=== PATIENT | female | born 1995 | race American Indian/Alaskan Native ===

== ENCOUNTER 2020-06-29 13:37 | Emergency (ER) | payer SELFPAY ==
--- NOTE | 2020-06-29 15:35 | EDM.PDOC ---
ED HPI GENERAL MEDICAL PROBLEM - General Chief Complaint: Respiratory Problem Stated Complaint: COVID+/VOMITING/NEEDS FLUIDS Time Seen by Provider: 06/29/20 15:34 - History of Present Illness INITIAL COMMENTS - FREE TEXT/NARRATIVE: 25-year-old female presents the emergency room with possibly dehydration and shakiness. The patient has a history of seizures is been several months and she had a seizure. Apparently she takes a medication like clonazepam she did not bring the medication with her and she is not certain what it is. And she did not bring it in with her. She does not always take it as directed as well. So or n ot positive what she takes. The patient had an episode around 1 AM where she had a seizure. These almost sound like pseudoseizures I do not have old records on her but she is awake during them and tries to talk herself out of them. The patient has been a little shaky and tremulous after this episode and that is what brings her in today. The patient is normally from [facility] and is here with family. She was diagnosed positive at [facility] about a week ago for COVID her sister was just discharged from the hospital here with COVID. She is not vomiting at least she is telling me she is not vomiting however when she came to admissions they reported that she reported that she was. 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: Musculoskeletal History: Reports: Fracture Neurological History: Reports: Seizure Psychiatric History: Reports: Addiction Dermatologic History: Reports: Psoriasis - Infectious Disease History Infectious Disease History: Reports: Novel Coronavirus - Past Surgical History HEENT Surgical History: Reports: Oral Surgery Social & Family History - Family History Family Medical History: Noncontributory - Tobacco Use Smoking Status *Q: Current Every Day Smoker Years of Tobacco use: 10 Packs/Tins Daily: 0.2 - Caffeine Use Caffeine Use: Reports: Coffee, Energy Drinks, Soda, Tea - Recreational Drug Use Recreational Drug Use: Yes Drug Use in Last 12 Months: No Recreational Drug Type: Reports: Ecstasy, Heroin, Marijuana/Hashish ED ROS GENERAL - Review of Systems Review Of Systems: See Below Constitutional: Reports: No Symptoms HEENT: Reports: No Symptoms Respiratory: Reports: No Symptoms, Other (Her cough has basically resolved from the COVID) Cardiovascular: Reports: No Symptoms GI/Abdominal: Reports: Vomiting (She reported to admitting that she was vomiting but she denies vomiting to me) Musculoskeletal: Reports: No Symptoms Skin: Reports: No Symptoms Neurological: Reports: Syncope Psychiatric: Reports: Anxiety ED EXAM, GENERAL - Physical Exam Exam: See Below Exam Limited By: No Limitations General Appearance: Alert, Anxious, Mild Distress (She is a little shaky and appears quite anxious) Ears: Normal External Exam, Normal Canal, Hearing Grossly Normal, Normal TMs Nose: Normal Inspection, Normal Mucosa, No Blood Throat/Mouth: Normal Inspection, Normal Lips, Normal Teeth, Normal Gums, Normal Oropharynx, Normal Voice, No Airway Compromise Head: Atraumatic, Normocephalic Neck: Normal Inspection, Supple, Non-Tender, Full Range of Motion Respiratory/Chest: No Respiratory Distress, Lungs Clear, Normal Breath Sounds, No Accessory Muscle Use, Chest Non-Tender Cardiovascular: Normal Peripheral Pulses, Regular Rate, Rhythm, No Edema, No Gallop, No JVD, No Murmur, No Rub GI/Abdominal: Normal Bowel Sounds, Soft, Non-Tender, No Organomegaly, No Distention, No Abnormal Bruit, No Mass Neurological: Alert, Oriented, CN II-XII Intact, Normal Cognition, No Motor/Sensory Deficits Psychiatric: Anxious Skin Exam: Warm, Dry, Intact Course - Vital Signs Last Recorded V/S: Last Vital Signs Temp 36.1 C 06/29/20 14:09 Pulse 76 06/29/20 14:09 Resp 20 06/29/20 14:09 BP 113/64 06/29/20 14:09 Pulse Ox 97 06/29/20 14:09 - Orders/Labs/Meds Orders: Active Orders 24 hr Category Date Time Status CULTURE URINE [RM] Stat Lab 06/29/20 18:14 Received Labs: Laboratory Tests 06/29/20 06/29/20 06/29/20 Range/Units 14:05 14:05 14:05 WBC 5.85 (3.98-10.04) K/mm3 RBC 4.78 (3.98-5.22) M/mm3 Hgb 13.1 (11.2-15.7) gm/dl Hct 40.9 (34.1-44.9) % MCV 85.6 (79.4-94.8) fl MCH 27.4 (25.6-32.2) pg MCHC 32.0 L (32.2-35.5) g/dl RDW Std Deviation 44.2 (36.4-46.3) fL Plt Count 605 H (182-369) K/mm3 MPV 9.6 (9.4-12.3) fl Neutrophils % (Manual) 54 (40-60) % Band Neutrophils % 0 (0-10) % Lymphocytes % (Manual) 42 H (20-40) % Atypical Lymphs % 0 % Monocytes % (Manual) 3 (2-10) % Eosinophils % (Manual) 1 (0.7-5.8) % Basophils % (Manual) 0 L (0.1-1.2) Platelet Estimate Increased Plt Morphology Comment Normal RBC Morph Comment Normal Sodium 140 (136-145) mEq/L Potassium 3.3 L (3.5-5.1) mEq/L Chloride 105 (98-107) mEq/L Carbon Dioxide 25 (21-32) mEq/L Anion Gap 13.3 (5-15) BUN 10 (7-18) mg/dL Creatinine 0.9 (0.55-1.02) mg/dL Est Cr Clr Drug Dosing 92.11 mL/min Estimated GFR (MDRD) > 60 (>60) mL/min BUN/Creatinine Ratio 11.1 L (14-18) Glucose 92 (74-106) mg/dL Calcium 8.6 (8.5-10.1) mg/dL Total Bilirubin 0.5 (0.2-1.0) mg/dL AST 77 H (15-37) U/L ALT 81 H (14-59) U/L Alkaline Phosphatase 103 (46-116) U/L C-Reactive Protein 1.8 H* (<1.0) mg/dL Total Protein 8.2 (6.4-8.2) g/dl Albumin 3.4 (3.4-5.0) g/dl Globulin 4.8 gm/dL Albumin/Globulin Ratio 0.7 L (1-2) HCG, Qual Negative (NEGATIVE) Urine Color (Yellow) Urine Appearance (Clear) Urine pH (5.0-8.0) Ur Specific [place] (1.005-1.030) Urine Protein (Negative) Urine Glucose (UA) (Negative) Urine Ketones (Negative) Urine Occult Blood (Negative) Urine Nitrite (Negative) Urine Bilirubin (Negative) Urine Urobilinogen (0.2-1.0) Ur Leukocyte Esterase (Negative) Urine RBC (0-5) /hpf Urine WBC (0-5) /hpf Ur Squamous Epith Cells (0-5) /hpf Urine Bacteria (FEW) /hpf Urine Mucus (FEW) /hpf Urine Opiates Screen (RDKAON=036) Ur Buprenorphine Scrn (CUTOFF=10) Ur Oxycodone Screen (ROV5AC=628) Urine Methadone Screen (DTXGUB=989) Ur Propoxyphene Screen (TADOXE=550) Ur Barbiturates Screen (TNKTRA=782) Ur Tricyclics Screen (OZAHHL=931) Ur Phencyclidine Scrn (CUTOFF=25) Ur Amphetamine Screen (TIARVL=311) U Methamphetamines Scrn (FKPRUC=956) U Benzodiazepines Scrn (MYWATW=534) U Cocaine Metab Screen (SLPGAJ=274) U Marijuana (THC) Screen (CUTOFF=50) 06/29/20 06/29/20 Range/Units 18:14 18:14 WBC (3.98-10.04) K/mm3 RBC (3.98-5.22) M/mm3 Hgb (11.2-15.7) gm/dl Hct (34.1-44.9) % MCV (79.4-94.8) fl MCH (25.6-32.2) pg MCHC (32.2-35.5) g/dl RDW Std Deviation (36.4-46.3) fL Plt Count (182-369) K/mm3 MPV (9.4-12.3) fl Neutrophils % (Manual) (40-60) % Band Neutrophils % (0-10) % Lymphocytes % (Manual) (20-40) % Atypical Lymphs % % Monocytes % (Manual) (2-10) % Eosinophils % (Manual) (0.7-5.8) % Basophils % (Manual) (0.1-1.2) Platelet Estimate Plt Morphology Comment RBC Morph Comment Sodium (136-145) mEq/L Potassium (3.5-5.1) mEq/L Chloride (98-107) mEq/L Carbon Dioxide (21-32) mEq/L Anion Gap (5-15) BUN (7-18) mg/dL Creatinine (0.55-1.02) mg/dL Est Cr Clr Drug Dosing mL/min Estimated GFR (MDRD) (>60) mL/min BUN/Creatinine Ratio (14-18) Glucose (74-106) mg/dL Calcium (8.5-10.1) mg/dL Total Bilirubin (0.2-1.0) mg/dL AST (15-37) U/L ALT (14-59) U/L Alkaline Phosphatase (46-116) U/L C-Reactive Protein (<1.0) mg/dL Total Protein (6.4-8.2) g/dl Albumin (3.4-5.0) g/dl Globulin gm/dL Albumin/Globulin Ratio (1-2) HCG, Qual (NEGATIVE) Urine Color Dark yellow (Yellow) Urine Appearance Slt cloudy H (Clear) Urine pH 6.5 (5.0-8.0) Ur Specific [place] 1.020 (1.005-1.030) Urine Protein 1+ H (Negative) Urine Glucose (UA) Negative (Negative) Urine Ketones 1+ H (Negative) Urine Occult Blood Negative (Negative) Urine Nitrite Negative (Negative) Urine Bilirubin 1+ H (Negative) Urine Urobilinogen 2.0 H (0.2-1.0) Ur Leukocyte Esterase 2+ H (Negative) Urine RBC 0-5 (0-5) /hpf Urine WBC 10-20 H (0-5) /hpf Ur Squamous Epith Cells 40-50 H (0-5) /hpf Urine Bacteria Moderate H (FEW) /hpf Urine Mucus Moderate H (FEW) /hpf Urine Opiates Screen Negative (EPQUMA=583) Ur Buprenorphine Scrn Negative (CUTOFF=10) Ur Oxycodone Screen Negative (ZRQ1DU=720) Urine Methadone Screen Negative (ESGNYY=399) Ur Propoxyphene Screen Negative (TZMESW=365) Ur Barbiturates Screen Negative (YEIHBR=189) Ur Tricyclics Screen Negative (MXTGHS=971) Ur Phencyclidine Scrn Negative (CUTOFF=25) Ur Amphetamine Screen Negative (SMOSPN=395) U Methamphetamines Scrn Negative (TRVSOX=159) U Benzodiazepines Scrn Negative (OGSGSS=608) U Cocaine Metab Screen Negative (FCAERS=968) U Marijuana (THC) Screen Presumptive positive H (CUTOFF=50) Meds: Medications Discontinued Medications Generic Name Dose Route Start Last Admin Trade Name Ousmane PRN Reason Stop Dose Admin Lorazepam 1 mg 06/29/20 15:58 06/29/20 16:08 Ativan IVPUSH 06/29/20 15:59 1 mg ONETIME ONE Administration Potassium Chloride 40 meq 06/29/20 17:52 Klor-Con M20 PO 06/29/20 17:53 ONETIME ONE - Re-Assessments/Exams Free Text/Narrative Re-Assessment/Exam: 06/29/20 17:58 We will reactive protein is mildly elevated platelets are also elevated perhaps due to the COVID. We still have not obtained a urine so awaiting UA and UDS. Patient is feeling better after getting a milligram of Ativan. 06/29/20 18:47 Urinalysis is back along with the drug screen is only positive for cannabinoids. Urinalysis is grossly contaminated I recommended the patient that we can attempt a get another specimen but she really wants to get going. She does not have any urinary tract symptoms at this point. However I told her I can only do the best I can with this obviously contaminated urine specimen. At this point I will not treat for UTI as she is not having symptoms. 06/29/20 18:48 Departure - Departure Time of Disposition: 18:48 Disposition: Home, Self-Care 01 Clinical Impression: Anxiety reaction - Discharge Information Referrals: PCP,None [Primary Care Provider] - Forms: ED Department Discharge Additional Instructions: Return to the emergency room with any questions problems or worsening symptoms. Follow-up in the hospital clinic this next week for recheck and follow-up. [phone] Sepsis Event Note (ED) - Evaluation Sepsis Screening Result: No Definite Risk - Focused Exam Vital Signs: Vital Signs Temp Pulse Resp BP Pulse Ox 06/29/20 14:09 36.1 C 76 20 113/64 97 - My Orders Last 24 Hours: My Active Orders 06/29/20 18:14 CULTURE URINE [RM] Stat - Assessment/Plan Last 24 Hours: My Active Orders 06/29/20 18:14 CULTURE URINE [RM] Stat
[2020-06-29] MEDS ORDERED: LORazepam 2 MG/ML SDV IVPUSH ONE (15:58)
[2020-06-29] MEDS ORDERED: Potassium Chloride 20 MEQ Tab.ER PO ONE (17:52)
== END 2020-06-29 19:10 | disposition home or self-care (01) ==
LOC: JD.ED 13:37
DX: F41.1 Generalized anxiety disorder (principal); U07.1 COVID-19; R11.10 Vomiting, unspecified; F17.210 Nicotine dependence, cigarettes, uncomplicated
CPT/HCPCS: 36415; 80053; 80306; 81001; 84703; 85007; 85027; 86140; 87086; 96374; 99284; A9270; J2060; 99283

== ENCOUNTER 2021-05-23 15:08 | Emergency (ER) | payer MEDICAID ==
[2021-05-23] MEDS ORDERED: Sodium Chloride 0.9% 10 ML Syringe FLUSH PRN (15:29)
[2021-05-23] MEDS ORDERED: levETIRAcetam 1,000 MG in Sodium Chloride 0.9% 100 ML IV ONE (15:30)
[2021-05-23] MEDS ORDERED: Ketorolac 30 MG/ML SDV IVPUSH ONE (15:58)
--- NOTE | 2021-05-23 16:35 | EDM.PDOC ---
ED HPI GENERAL MEDICAL PROBLEM - General Chief Complaint: Neurological Problem Stated Complaint: SEIZURE ACTIVITY Time Seen by Provider: 05/23/21 15:14 Source of Information: Reports: Patient History Limitations: Reports: No Limitations - History of Present Illness INITIAL COMMENTS - FREE TEXT/NARRATIVE: The patient presents wit a seizure. She has a history of seizures and she was on medications. She stopped taking them a year ago and she did good until last night. She had 2 seizures back to back. She then had another one at 11am today and about 2 hours after that. She did bite her tongue. She has no headache, fever, chills, cough, chest pain, shortness of breath, abdominal pain, nausea or vomiting. She does have some right leg pain. She is thinking she needs to get back on something for her seizures. She has not been drinking lately. She has been getting enough sleep. She does not do drugs. 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 Respiratory History: Reports: PE Other Respiratory History: Pulmonary blood clot 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: Musculoskeletal History: Reports: Fracture Neurological History: Reports: Seizure Psychiatric History: Reports: Addiction Endocrine/Metabolic History: Reports: Obesity/BMI 30+ Dermatologic History: Reports: Psoriasis - Infectious Disease History Infectious Disease History: Reports: Novel Coronavirus - Past Surgical History HEENT Surgical History: Reports: Oral Surgery Musculoskeletal Surgical History: Reports: Other (See Below) Other Musculoskeletal Surgeries/Procedures:: Clavicle Surgery with Bone Graft Social & Family History - Family History Family Medical History: No Pertinent Family History - Tobacco Use Tobacco Use Status *Q: Current Every Day Tobacco User Years of Tobacco use: 10 Packs/Tins Daily: 0.3 - Caffeine Use Caffeine Use: Reports: Energy Drinks, Soda - Recreational Drug Use Recreational Drug Use: No ED ROS GENERAL - Review of Systems Review Of Systems: See Below Constitutional: Reports: No Symptoms HEENT: Reports: No Symptoms Respiratory: Reports: No Symptoms Cardiovascular: Reports: No Symptoms Endocrine: Reports: No Symptoms GI/Abdominal: Reports: No Symptoms : Reports: No Symptoms Musculoskeletal: Reports: Muscle Stiffness, Other (ritht leg pain) Skin: Reports: No Symptoms Neurological: Reports: Seizure - Physical Exam Exam: See Below Exam Limited By: No Limitations General Appearance: Alert, No Apparent Distress Ears: Normal External Exam Nose: Normal Inspection Throat/Mouth: Other (abrasion left tongue) Head Exam: Atraumatic, Normocephalic Neck: Normal Inspection Respiratory/Chest: No Respiratory Distress, Lungs Clear, Normal Breath Sounds Cardiovascular: Regular Rate, Rhythm, No Edema, No Murmur GI/Abdominal: Soft, Non-Tender, No Organomegaly, No Mass Neuro Exam (Abbreviated): Alert, Oriented, No Motor/Sensory Deficits Course - Vital Signs Last Recorded V/S: Last Vital Signs Temp 96.4 F L 05/23/21 15:14 Pulse 92 05/23/21 15:14 Resp 16 05/23/21 15:14 BP 133/76 05/23/21 15:14 Pulse Ox 97 05/23/21 15:14 - Orders/Labs/Meds Orders: Active Orders 24 hr Category Date Time Status Cardiac Monitoring [RC] . DIRECTED Care 05/23/21 15:29 Active Peripheral IV Care [RC] . DIRECTED Care 05/23/21 15:30 Active Sodium Chloride 0.9% [Saline Flush] Med 05/23/21 15:29 Active 10 ml FLUSH ASDIRECTED PRN Peripheral IV Insertion Adult [OM.PC] Stat Oth 05/23/21 15:29 Ordered Medication Orders Sodium Chloride (Sodium Chloride 0.9% 10 Ml Syringe) 10 ml FLUSH ASDIRECTED PRN PRN Reason: Keep Vein Open Last Admin: 05/23/21 15:34 Dose: 10 ml Documented by: FRANKIE Labs: Laboratory Tests 05/23/21 05/23/21 05/23/21 Range/Units 15:15 15:15 15:15 WBC 8.75 (3.98-10.04) K/mm3 RBC 4.19 (3.98-5.22) M/mm3 Hgb 11.8 (11.2-15.7) gm/dl Hct 36.9 (34.1-44.9) % MCV 88.1 (79.4-94.8) fl MCH 28.2 (25.6-32.2) pg MCHC 32.0 L (32.2-35.5) g/dl RDW Std Deviation 47.8 H (36.4-46.3) fL Plt Count 387 H D (182-369) K/mm3 MPV 9.2 L (9.4-12.3) fl Neut % (Auto) 66.5 (34.0-71.1) % Lymph % (Auto) 22.4 (19.3-51.7) % [place] % (Auto) 7.8 (4.7-12.5) % Eos % (Auto) 2.9 (0.7-5.8) Baso % (Auto) 0.3 (0.1-1.2) % Neut # (Auto) 5.82 (1.56-6.13) K/mm3 Lymph # (Auto) 1.96 (1.18-3.74) K/mm3 [place] # (Auto) 0.68 H (0.24-0.36) K/mm3 Eos # (Auto) 0.25 (0.04-0.36) K/mm3 Baso # (Auto) 0.03 (0.01-0.08) K/mm3 Sodium 145 (136-145) mEq/L Potassium 3.5 (3.5-5.1) mEq/L Chloride 109 H (98-107) mEq/L Carbon Dioxide 22 (21-32) mEq/L Anion Gap 17.5 H (5-15) BUN 7 (7-18) mg/dL Creatinine 0.7 (0.55-1.02) mg/dL Est Cr Clr Drug Dosing 118.43 mL/min Estimated GFR (MDRD) > 60 (>60) mL/min BUN/Creatinine Ratio 10.0 L (14-18) Glucose 90 (70-99) mg/dL Calcium 8.4 L (8.5-10.1) mg/dL Magnesium 1.8 (1.8-2.4) mg/dL Total Bilirubin 0.2 (0.2-1.0) mg/dL AST 29 (15-37) U/L ALT 24 (14-59) U/L Alkaline Phosphatase 76 (46-116) U/L Total Protein 7.6 (6.4-8.2) g/dl Albumin 3.7 (3.4-5.0) g/dl Globulin 3.9 gm/dL Albumin/Globulin Ratio 1.0 (1-2) HCG, Qual Negative (NEGATIVE) Meds: Medications Generic Name Dose Route Start Last Admin Trade Name Freq PRN Reason Stop Dose Admin Sodium Chloride 10 ml 05/23/21 15:29 05/23/21 15:34 Sodium Chloride 0.9% 10 Ml Syringe FLUSH 10 ml ASDIRECTED PRN Administration Keep Vein Open Discontinued Medications Generic Name Dose Route Start Last Admin Trade Name Freq PRN Reason Stop Dose Admin Levetiracetam 1,000 mg/ Sodium 110 mls @ 400 mls/hr 05/23/21 15:30 05/23/21 15:51 Chloride IV 05/23/21 15:44 400 mls/hr ONETIME ONE Administration Ketorolac Tromethamine 30 mg 05/23/21 15:58 05/23/21 16:07 Ketorolac 30 Mg/Ml Sdv IVPUSH 05/23/21 15:59 30 mg ONETIME ONE Administration - Re-Assessments/Exams Free Text/Narrative Re-Assessment/Exam: 05/23/21 16:34 I ordered an IV saline lock, labs and keppra 1,000mg IV. 05/23/21 16:35 Her CBC and CMP look good. Her HCG is negative. I will get her on keppra and have her follow up with her doctor. Departure - Departure Time of Disposition: 16:45 Disposition: Home, Self-Care 01 Condition: Good Clinical Impression: Seizure - Discharge Information *PRESCRIPTION DRUG MONITORING PROGRAM REVIEWED*: Not Applicable *COPY OF PRESCRIPTION DRUG MONITORING REPORT IN PATIENT DOMONIQUE: Not Applicable Prescriptions: levETIRAcetam [Keppra] 500 mg PO BID #60 tab Referrals: PCP,None [Primary Care Provider] - Reyna Gonzalez MD [Physician] - 1 Week Forms: ED Department Discharge Additional Instructions: Drink plenty of fluids. Take the keppra 2 times per day. Avoid alcohol and get plenty of sleep. Do not drive for 6 months or until you are cleared by your doctor. Avoid swimming or baths with lots of water in case you have a seizure. You may drown. Follow up with your provider or Dr Gonzalez in our clinic. Please return if you are worse. Sepsis Event Note (ED) - Evaluation Sepsis Screening Result: No Definite Risk - Focused Exam Vital Signs: Vital Signs Temp Pulse Resp BP Pulse Ox 05/23/21 15:14 96.4 F L 92 16 133/76 97 - My Orders Last 24 Hours: My Active Orders 05/23/21 15:29 Cardiac Monitoring [RC] . DIRECTED Sodium Chloride 0.9% [Saline Flush] 10 ml FLUSH ASDIRECTED PRN Peripheral IV Insertion Adult [OM.PC] Stat 05/23/21 15:30 Peripheral IV Care [RC] . DIRECTED - Assessment/Plan Last 24 Hours: My Active Orders 05/23/21 15:29 Cardiac Monitoring [RC] . DIRECTED Sodium Chloride 0.9% [Saline Flush] 10 ml FLUSH ASDIRECTED PRN Peripheral IV Insertion Adult [OM.PC] Stat 05/23/21 15:30 Peripheral IV Care [RC] . DIRECTED
== END 2021-05-23 16:53 | disposition home or self-care (01) ==
LOC: JD.ED 15:08
DX: R56.9 Unspecified convulsions (principal); S00.512A Abrasion of oral cavity, initial encounter; M79.604 Pain in right leg; E66.9 Obesity, unspecified; Z68.36 Body mass index [BMI] 36.0-36.9, adult; Z72.0 Tobacco use; Z91.030 Bee allergy status; Z79.899 Other long term (current) drug therapy; X58.XXXA Exposure to other specified factors, initial encounter
CPT/HCPCS: 36415; 80053; 83735; 84703; 85025; 96365; 96375; 99284; J1885; J1953

== ENCOUNTER 2021-05-27 12:02 | Emergency (ER) | payer MEDICAID ==
--- NOTE | 2021-05-27 12:39 | EDM.PDOC ---
ED HPI GENERAL MEDICAL PROBLEM - General Chief Complaint: Neurological Problem Stated Complaint: SEIZURE ACTIVITY Time Seen by Provider: 05/27/21 12:38 - History of Present Illness INITIAL COMMENTS - FREE TEXT/NARRATIVE: 25-year-old female returns the emergency room what she believes was 2 seizures earlier today. Patient had an episode where she had blank staring but she was awake during all this. Then she had her typical generalized seizure after this she bit her tongue with it. She is back to normal now. The patient was seen here on the started on Keppra however was unable unable to get this filled due to financial restraints. This evening the patient's father can help her get it filled. Patient has no other complaints at this time. 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: Musculoskeletal History: Reports: Fracture Neurological History: Reports: Seizure Psychiatric History: Reports: Addiction Endocrine/Metabolic History: Reports: Obesity/BMI 30+ Dermatologic History: Reports: Psoriasis - Infectious Disease History Infectious Disease History: Reports: Novel Coronavirus - Past Surgical History HEENT Surgical History: Reports: Oral Surgery Musculoskeletal Surgical History: Reports: Other (See Below) Other Musculoskeletal Surgeries/Procedures:: Clavicle Surgery with Bone Graft Social & Family History - Family History Family Medical History: No Pertinent Family History - Caffeine Use Caffeine Use: Reports: Energy Drinks, Soda ED ROS GENERAL - Review of Systems Review Of Systems: See Below Constitutional: Reports: No Symptoms HEENT: Reports: No Symptoms Respiratory: Reports: No Symptoms Cardiovascular: Reports: No Symptoms GI/Abdominal: Reports: No Symptoms ED EXAM, GENERAL - Physical Exam Exam: See Below Exam Limited By: No Limitations General Appearance: Alert, No Apparent Distress Head: Atraumatic, Normocephalic Neck: Normal Inspection, Supple, Non-Tender, Full Range of Motion Respiratory/Chest: No Respiratory Distress, Lungs Clear, Normal Breath Sounds Cardiovascular: Regular Rate, Rhythm, No Edema, No Murmur GI/Abdominal: Normal Bowel Sounds, Soft, Non-Tender Back Exam: Normal Inspection. No: CVA Tenderness (L), CVA Tenderness (R) Course - Vital Signs Last Recorded V/S: Last Vital Signs Temp 36.1 C 05/27/21 12:29 Pulse 83 05/27/21 12:29 Resp 18 05/27/21 12:29 BP 124/77 05/27/21 12:29 Pulse Ox 95 05/27/21 12:29 - Orders/Labs/Meds Meds: Medications Discontinued Medications Generic Name Dose Route Start Last Admin Trade Name Ousmane PRN Reason Stop Dose Admin Acetaminophen 975 mg 05/27/21 13:19 05/27/21 13:31 Acetaminophen 325 Mg Tab PO 05/27/21 13:20 975 mg NOW ONE Administration Levetiracetam 1,000 mg/ Sodium 110 mls @ 400 mls/hr 05/27/21 12:51 05/27/21 13:31 Chloride IV 05/27/21 13:05 400 mls/hr ONETIME ONE Administration - Re-Assessments/Exams Free Text/Narrative Re-Assessment/Exam: 05/27/21 12:54 I will give her Keppra 1000 mg IV at this point the patient assures me she can get the Keppra prescription filled this evening. 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 She knows that is waiting for her at the [facility] in the [facility]. Departure - Departure Time of Disposition: 15:05 Disposition: Home, Self-Care 01 Clinical Impression: Seizure - Discharge Information Referrals: PCP,None [Primary Care Provider] - Forms: ED Department Discharge Additional Instructions: Return to the emergency room with any questions problems or worsening symptoms. You have a prescription waiting for you at the [facility] pharmacy in the [employer] grocery store. Start this tonight. Then take 1 twice daily. Follow-up with your regular healthcare provider or follow-up in the hospital clinic in 1 week for recheck the phone number to the hospital clinic here in [place] is is [phone] or operate hazardous equipment includes until cleared to do so by a physician. Sepsis Event Note (ED) - Evaluation Sepsis Screening Result: No Definite Risk - Focused Exam Vital Signs: Vital Signs Temp Pulse Resp BP Pulse Ox 05/27/21 12:29 36.1 C 83 18 124/77 95
[2021-05-27] MEDS ORDERED: levETIRAcetam 1,000 MG in Sodium Chloride 0.9% 100 ML IV ONE (12:51)
[2021-05-27] MEDS ORDERED: Acetaminophen 325 MG Tab PO ONE (13:19)
== END 2021-05-27 15:25 | disposition home or self-care (01) ==
LOC: JD.ED 12:02
DX: R56.9 Unspecified convulsions (principal); E66.9 Obesity, unspecified; Z91.030 Bee allergy status; Z79.899 Other long term (current) drug therapy
CPT/HCPCS: 96365; 99283; A9270; J1953

== ENCOUNTER 2021-05-27 19:42 | Emergency (ER) | payer MEDICAID ==
--- NOTE | 2021-05-27 20:47 | EDM.PDOC ---
ED HPI GENERAL MEDICAL PROBLEM - General Chief Complaint: Neurological Problem Stated Complaint: [facility] Time Seen by Provider: 05/27/21 19:42 Source of Information: Reports: Patient History Limitations: Reports: No Limitations - History of Present Illness INITIAL COMMENTS - FREE TEXT/NARRATIVE: Medical records indicate that the patient was seen in this ED on 05/23/2021 after suffering 3 seizures. She reported that she had a history of seizure disorder, and that she had previously been on antiepileptic medication, but that she had stopped taking them a year prior. She was found to be hemodynamically stable, afebrile, saturating 97% on room air. Her physical exam was unremarkable. Work-up included a CBC, CMP, magnesium level, and serum qualitative hCG. Her entire work-up was unremarkable. She was given 1 g of IV Keppra in the ED before being discharged home with a prescription for Keppra 500 mg po BID #60. She was seen again in this ED earlier today, 05/27/2021, after suffering 2 more seizures. She reported that the first one involved blank staring during which time she was awake, but the second one was a generalized tonic-clonic seizure, where she bit her tongue. She reported that she had not filled the earlier prescription for Keppra, citing cost. Again she was found to be hemodynamically stable, afebrile, saturating 95% on room air. Her physical exam was again unremarkable. No work-up was performed. She was treated with another gram of IV Keppra before being discharged home with no new prescriptions. She told the provider that her father would be able to help her get her previous prescription filled. The patient is now brought back to the ED by EMS after suffering a seizure at home. EMS reports that when they arrived, the patient was just coming out of a seizure Her, but then she suffered 2 more seizures in their presence. Each seizure appeared to last only 45 seconds, and with the patient stopped seizing, she was not postictal. The patient tells me that she thinks she bit her tongue, but denies incontinence of bowel or bladder. She tells me that she has had seizures since she was 16 years old, and that she was on antiepileptic medication until she was 18 years old. She acknowledges that the reason that she stopped taking her antiepileptic medication was because she wanted to drive. She has never been evaluated by a Neurologist or undergone an EEG, and she also tells me that she has never undergone an imaging study of her head. She states that her last seizure, prior to 05/23/2021, was in 2019. She eats that she drank 2 beers about 1 hour ago. She denies illicit drug use. She denies recent sleep deprivation. Here in the ED tonight, the patient was initially found to be mildly tachycardic at 104 bpm, otherwise, she is hemodynamically stable, afebrile, saturating 97% on room air. She was initially tearful, asking for her father, but calmed down after she talked to him on the phone. Other than the seizures, the patient denies having a recent fever, chills, sore throat, ear pain, nasal or sinus congestion, cough, dyspnea, chest pain, palpitations, nausea, vomiting, constipation, diarrhea, abdominal pain, urinary symptoms, recent weight gain or weight loss, recent bloody bowel movements or black bowel movements, recent joint aches, headaches, or rashes. The patient does not have a PCP. She has not received a COVID vaccination. Left Toe-Long Pain Score (Numeric/FACES): 8 - Related Data Allergies Allergy/AdvReac Type Severity Reaction Status Date / Time bee pollen Allergy Severe Anaphylactic Verified 05/27/21 20:29 Shock Home Meds: Home Meds levETIRAcetam [Keppra] 500 mg PO BID #60 tab 05/23/21 [Rx] Past Medical History Respiratory History: Reports: PE Musculoskeletal History: Reports: Fracture Neurological History: Reports: Seizure Psychiatric History: Reports: Addiction (methamphetamine) Endocrine/Metabolic History: Reports: Obesity/BMI 30+ Dermatologic History: Reports: Psoriasis - Infectious Disease History Infectious Disease History: Reports: Novel Coronavirus - Past Surgical History HEENT Surgical History: Reports: Oral Surgery (dental extractions) GI Surgical History: Reports: Cholecystectomy (2013) Musculoskeletal Surgical History: Reports: ORIF (left clavicle), Other (See Below) (Left clavicle repair with bone graft from left hip) Social & Family History - Tobacco Use Tobacco Use Status *Q: Light Tobacco User Years of Tobacco use: 12 Packs/Tins Daily: 0.1 Packs/Tins Daily Comment: Down from 11/06 ppd Tobacco Use Comment: Started smoking 2007 - Caffeine Use Caffeine Use: Reports: Energy Drinks, Soda - Alcohol Use Alcohol Use History: Yes Alcohol Use Frequency: Socially - Recreational Drug Use Recreational Drug Use: Yes Drug Use in Last 12 Months: Yes Recreational Drug Type: Reports: Marijuana/Hashish (smokes once or twice a week), Methamphetamine (snorts on occasion) - Living Situation & Occupation Living situation: Reports: Single, with Family (Father) Occupation: Unemployed ED ROS GENERAL - Review of Systems Review Of Systems: Comprehensive ROS is negative, except as noted in HPI. - Physical Exam Exam: See Below Exam Limited By: No Limitations General Appearance: Alert, WD/WN, No Apparent Distress Eye Exam: Bilateral Eye: EOMI, Normal Inspection Ears: Normal External Exam, Hearing Grossly Normal Nose: Normal Inspection Throat/Mouth: Normal Inspection, Normal Lips, Normal Teeth, Normal Gums, Normal Oropharynx (no visible injury to left tongue), Normal Voice, No Airway Compromise Head Exam: Atraumatic, Normocephalic Neck: Normal Inspection, Full Range of Motion Respiratory/Chest: No Respiratory Distress, Lungs Clear, Normal Breath Sounds, No Accessory Muscle Use Cardiovascular: Normal Peripheral Pulses, Regular Rate, Rhythm, No Edema, No Gallop, No JVD, No Murmur, No Rub GI/Abdominal: Normal Bowel Sounds, Soft, Non-Tender, No Organomegaly, No Distention, No Abnormal Bruit, No Mass Neuro Exam (Abbreviated): Alert, Oriented, CN II-XII Intact, Normal Cognition, No Motor/Sensory Deficits Back Exam: Normal Inspection, Full Range of Motion, NT Extremities: Normal Inspection, Normal Range of Motion, Normal Capillary Refill Psychiatric: Normal Affect Skin Exam: Warm, Dry, Intact, Normal Color, No Rash Course - Vital Signs Last Recorded V/S: Last Vital Signs Temp 36.6 C 05/27/21 20:25 Pulse 110 H 05/27/21 21:08 Resp 18 05/27/21 20:25 BP 124/75 05/27/21 21:08 Pulse Ox 97 05/27/21 21:08 - Orders/Labs/Meds Orders: Active Orders 24 hr Category Date Time Status Head wo Cont [CT] Stat Exams 05/27/21 20:47 Taken Labs: Laboratory Tests 05/27/21 05/27/21 05/27/21 Range/Units 19:53 19:53 21:26 WBC 9.95 (3.98-10.04) K/mm3 RBC 4.54 (3.98-5.22) M/mm3 Hgb 12.7 (11.2-15.7) gm/dl Hct 39.7 (34.1-44.9) % MCV 87.4 (79.4-94.8) fl MCH 28.0 (25.6-32.2) pg MCHC 32.0 L (32.2-35.5) g/dl RDW Std Deviation 48.7 H (36.4-46.3) fL Plt Count 422 H (182-369) K/mm3 MPV 9.5 (9.4-12.3) fl Neutrophils % (Manual) 65 H (40-60) % Band Neutrophils % 1 (0-10) % Lymphocytes % (Manual) 27 (20-40) % Atypical Lymphs % 0 % Monocytes % (Manual) 3 (2-10) % Eosinophils % (Manual) 2 (0.7-5.8) % Basophils % (Manual) 2 H (0.1-1.2) Platelet Estimate Increased Plt Morphology Comment See note RBC Morph Comment Normal Sodium 144 (136-145) mEq/L Potassium 3.3 L (3.5-5.1) mEq/L Chloride 106 (98-107) mEq/L Carbon Dioxide 17 L (21-32) mEq/L Anion Gap 24.3 H (5-15) BUN 9 (7-18) mg/dL Creatinine 0.8 (0.55-1.02) mg/dL Est Cr Clr Drug Dosing TNP Estimated GFR (MDRD) > 60 (>60) mL/min BUN/Creatinine Ratio 11.3 L (14-18) Glucose 81 (70-99) mg/dL Calcium 8.8 (8.5-10.1) mg/dL Phosphorus 3.1 (2.6-4.7) mg/dL Magnesium 1.9 (1.8-2.4) mg/dL Total Bilirubin 0.5 (0.2-1.0) mg/dL AST 29 (15-37) U/L ALT 28 (14-59) U/L Alkaline Phosphatase 82 (46-116) U/L Creatine Kinase 280 H (26-192) U/L Total Protein 8.3 H (6.4-8.2) g/dl Albumin 4.1 (3.4-5.0) g/dl Globulin 4.2 gm/dL Albumin/Globulin Ratio 1.0 (1-2) Urine Opiates Screen Negative (MGLOUB=729) Ur Buprenorphine Scrn Negative (CUTOFF=10) Ur Oxycodone Screen Negative (WKC8HB=392) Urine Methadone Screen Negative (DIUMWM=717) Ur Propoxyphene Screen Negative (JVAITC=477) Ur Barbiturates Screen Negative (FFBNLS=333) Ur Tricyclics Screen Negative (HRRUWT=134) Ur Phencyclidine Scrn Negative (CUTOFF=25) Ur Amphetamine Screen Negative (MTIZFM=261) U Methamphetamines Scrn Presumptive positive H (EJGJWQ=592) U Benzodiazepines Scrn Presumptive positive H (JXPOWK=171) U Cocaine Metab Screen Negative (EMLZCX=196) U Marijuana (THC) Screen Presumptive positive H (CUTOFF=50) Ethyl Alcohol 0.14 (0.00) gm% Meds: Medications Discontinued Medications Generic Name Dose Route Start Last Admin Trade Name Freq PRN Reason Stop Dose Admin Acetaminophen 650 mg 05/27/21 21:42 05/27/21 22:00 Acetaminophen 325 Mg Tab PO 05/27/21 21:43 650 mg NOW ONE Administration - Re-Assessments/Exams Free Text/Narrative Re-Assessment/Exam: 05/27/21 21:43 CT of the head without contrast is read by Jameson as "No acute intracranial abnormality." 05/27/21 22:38 The patient's CBC is remarkable for mild thrombocytosis of 422,000, with remainder of her CBC being unremarkable. Her CMP is remarkable for slight hypokalemia of 3.3, and an anion gap mildly elevated at 24.3, with a bicarbonate depressed at 17, and the remainder of her CMP being unremarkable. Her magnesium level is within normal limits at 1.9. Her phosphorus level is within normal limits at 3.1. Her CPK is modestly elevated at 280. Her EtOH level is significantly elevated at 0.14. Her urine drug screen is positive for methamphetamine, benzodiazepines, and marijuana. 05/27/21 22:45 Test results discussed with the patient and her father - she allowed him to be present. She acknowledged that she has been snorting methamphetamine on and off since 16 years old, and that she smokes marijuana once or twice a week. I strongly recommended that she follow-up at [facility] to address her methamphetamine abuse, and she stated that she would. With respect to her ability to afford taking Keppra, we will have social media assistant contact her tomorrow at [phone], to see if they can do anything to help her afford her medications. Departure - Departure Time of Disposition: 22:49 Disposition: Home, Self-Care 01 Condition: Good Clinical Impression: Epileptic seizure, Methamphetamine abuse, Marijuana use, Alcohol intoxication - Discharge Information *PRESCRIPTION DRUG MONITORING PROGRAM REVIEWED*: No *COPY OF PRESCRIPTION DRUG MONITORING REPORT IN PATIENT DOMONIQUE: No Referrals: PCP,None [Primary Care Provider] - Forms: ED Department Discharge Additional Instructions: You were seen in the emergency after suffering 3 seizures. Work-up in the ER included several blood tests, a urine drug screen, and a CT scan of your head. Your work-up was remarkable for an alcohol level significantly elevated at 0.14 (for reference, that is almost double the upper legal limit for driving), and for your urine drug screen being positive for both methamphetamine and marijuana. Both alcohol and methamphetamine can lower your seizure threshold. It is very important that you do not drink alcohol or use methamphetamine. We strongly recommend that you follow-up at [facility] to address your methamphetamine and alcohol use: [address] [place] [phone] Someone from social media assistant will contact you tomorrow to discuss options for you to be able to afford your antiepileptic medication. If any other problems, please do not hesitate to return to the ER. Sepsis Event Note (ED) - Evaluation Sepsis Screening Result: No Definite Risk - Focused Exam Vital Signs: Vital Signs Temp Pulse Resp BP Pulse Ox 05/27/21 21:08 110 H 124/75 97 05/27/21 20:25 36.6 C 104 H 18 136/78 97 - My Orders Last 24 Hours: My Active Orders 05/27/21 20:47 Head wo Cont [CT] Stat - Assessment/Plan Last 24 Hours: My Active Orders 05/27/21 20:47 Head wo Cont [CT] Stat
[2021-05-27] MEDS ORDERED: Acetaminophen 325 MG Tab PO ONE (21:42)
--- NOTE | 2021-05-28 07:45 | CT ---
Head CT Technique: Multiple axial sections through the brain were obtained. Intravenous contrast was not utilized. Reconstructed coronal and sagittal images were obtained. Findings: Ventricles along with basal cisterns and sulci over the convexities are within normal limits for the patient's age. No abnormal parenchymal densities are seen. No evidence of intracranial hemorrhage. No midline shift or mass-effect is seen. Bone window settings were reviewed. Minimal mucosal thickening is seen within the left sphenoid sinus. Minimal mucosal thickening is noted within the ethmoid sinuses. No fluid is seen within the visualized paranasal sinuses. Visualized mastoid sinuses appear clear. No acute calvarial abnormality is appreciated. Impression: 1. Minimal sinus findings which are most likely chronic. 2. Nothing acute is seen on noncontrast head CT study. Diagnostic code #2 I agree with preliminary report from [facility], finalized on 05/27/21, 10:36 PM CDT, code 1
== END 2021-05-27 23:15 | disposition home or self-care (01) ==
LOC: JD.ED 19:42
DX: G40.909 Epilepsy, unspecified, not intractable, without status epilepticus (principal); F15.10 Other stimulant abuse, uncomplicated; F12.90 Cannabis use, unspecified, uncomplicated; F10.129 Alcohol abuse with intoxication, unspecified; Y90.0 Blood alcohol level of less than 20 mg/100 ml; F17.210 Nicotine dependence, cigarettes, uncomplicated; E66.9 Obesity, unspecified; Z91.030 Bee allergy status; Z86.16 Personal history of COVID-19; Z79.899 Other long term (current) drug therapy
CPT/HCPCS: 36415; 70450; 80053; 80306; 80307; 82550; 83735; 84100; 85007; 85027; 99284; A9270

== ENCOUNTER 2021-05-30 05:48 | Emergency (ER) | payer MEDICAID ==
[~2021-05-30 05:48] MED LIST: levETIRAcetam 500 MG Tab PO SCH
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
[2021-05-30] MEDS ORDERED: levETIRAcetam 1,000 MG in Sodium Chloride 0.9% 100 ML IV ONE (06:26)
[2021-05-30] MEDS ORDERED: Dextrose 5%-Lactated Ringers 1,000 ML ONE (07:36)
[2021-05-30] MEDS ORDERED: Dextrose 5%-Lactated Ringers 1,000 ML IV SCH (07:45)
--- NOTE | 2021-05-30 07:47 | CT ---
Head CT Technique: Multiple axial sections through the brain were obtained. Intravenous contrast was not utilized. Reconstructed coronal and sagittal images were obtained. Comparison: Previous head CT study of 05/27/21. Findings: Ventricles along with basal cisterns and sulci over the convexities are within normal limits for the patient's age. No abnormal parenchymal densities are seen. No evidence of intracranial hemorrhage is seen. No midline shift or mass-effect is seen. Bone window settings were reviewed. Visualized paranasal sinuses show minimal mucosal thickening within the left side of the sphenoid sinus. No acute paranasal sinus findings are otherwise seen. Visualized mastoid sinuses are clear. No acute calvarial abnormality is appreciated. Impression: 1. Minimal sinus findings believed to be chronic and incidental. 2. Nothing acute is seen on noncontrast head CT study. Diagnostic code #2
--- NOTE | 2021-05-30 08:31 | CR ---
Left foot: 4 views left foot were obtained. Comparison: No prior foot exam is available. Mild soft tissue swelling is noted. Joint spaces are maintained. No acute fracture, dislocation or other bony abnormality is appreciated. Impression: 1. Slight soft tissue swelling. 2. No acute osseous abnormality is seen on left foot exam. Diagnostic code #2
[2021-05-30] MEDS ORDERED: Cetirizine 10 MG Tab PO ONE (15:04)
[2021-05-30] MEDS ORDERED: Acetaminophen 325 MG Tab PO ONE (15:05)
== END 2021-05-30 15:20 | disposition home or self-care (01) ==
LOC: JD.ED 05:48
DX: G40.909 Epilepsy, unspecified, not intractable, without status epilepticus (principal); F10.129 Alcohol abuse with intoxication, unspecified; F15.10 Other stimulant abuse, uncomplicated; F12.90 Cannabis use, unspecified, uncomplicated; E66.9 Obesity, unspecified; Z68.35 Body mass index [BMI] 35.0-35.9, adult; Z86.16 Personal history of COVID-19; Z72.0 Tobacco use; Z91.030 Bee allergy status; Z79.899 Other long term (current) drug therapy; Y90.0 Blood alcohol level of less than 20 mg/100 ml; Z20.822 Contact with and (suspected) exposure to COVID-19
CPT/HCPCS: 36415; 70450; 73630; 80053; 80307; 84703; 85025; 87635; 96365; 99285; A9270; J1953; J7121; 99284; U0002

== ENCOUNTER 2023-08-01 06:17 | Emergency (ER) | payer MEDICAID | END 2023-08-01 07:15 | disposition home or self-care (01) | LOC: JD.ED 06:17 | DX: S43.402A Unspecified sprain of left shoulder joint, initial encounter (principal); R56.9 Unspecified convulsions; E66.9 Obesity, unspecified; F17.210 Nicotine dependence, cigarettes, uncomplicated; Z91.09 Other allergy status, other than to drugs and biological substances; Z79.899 Other long term (current) drug therapy; Z86.16 Personal history of COVID-19; Z68.31 Body mass index [BMI] 31.0-31.9, adult; W19.XXXA Unspecified fall, initial encounter | CPT/HCPCS: 73000-26-LT; 73000-LT; 99283 ==